=== PATIENT | male | born 1975 | race Caucasian/White ===

== ENCOUNTER → 2018-09-11 | Outpatient (CLI) | payer OTHER ==
[~2018-09-11] MED LIST: 0.9 % SODIUM CHLORIDE 10 ML DISP.SYRIN. ID ONE; GADOBUTROL 10 MMOL/10 ML VIAL INT ART ONE; IOHEXOL 300 MG/ML 50 ML VIAL. INT ART ONE; LIDOCAINE 1% Multi-Dose 20 ML VIAL. ID ONE
--- NOTE | 2018-09-11 16:37 | KCIC ---
Examination: Left Shoulder Arthrogram: Indications: Recent dislocation, shoulder pain. Procedure: Risks, benefits and complications including bleeding, infection, blood vessel damage or joint infection were discussed with the patient. Questions were answered and consent form signed. The patient was placed supine on the fluoroscopy table with the shoulder slightly externally rotated. Bony landmarks were used to plan for fluoroscopic injection. A timeout was performed. The patient was carefully prepped and draped in a sterile fashion. Using fluoroscopic guidance, local anesthetic and a 22 gauge needle the joint space was entered. Intra-articular location was confirmed as approximately 12 cc mixture of 5 cc of Omnipaque 300, 10 cc of saline, 5 cc of lidocaine and 0.1 cc of gadavist was injected to distend the shoulder joint. The procedure was well tolerated and the patient was sent to MRI. The patient was sent home in good condition with instructions to contact referring physician if there develops signs or symptoms of complications, such as pain, bleeding, fever or chills. Impression: Status post fluoroscopic guided arthrogram in preparation for MRI with contrast. Total fluoroscopic time 18 seconds. Total fluoroscopic images 1. Electronically signed by: Alek Morales MD (09/11/2018 4:34 PM) [id number]
--- NOTE | 2018-09-11 17:04 | KCIC ---
Examination: MRI left shoulder arthrogram HISTORY: History of left shoulder dislocation. COMPARISON: None available Technique: Multiplanar, multisequence MR imaging of the left shoulder performed after arthrogram injection. FINDINGS: The long head of the biceps tendon is within the bicipital groove. The attachment of the long head of biceps tendon to the superior labral anchor grossly appears intact. The attachment of the subscapularis tendon is intact. The attachment of the supraspinatus, infraspinatus tendon grossly appears intact. No evidence of full-thickness tear of the rotator cuff identified. Minimal undersurface fraying of the supraspinatus tendon. There is extensive tear of the anterior labrum extending from superior to inferior labrum. The anterior labrum appears irregular. There is contrast going through the labralchondral junction to the inferior labrum. The cartilage is thin. Questionable small Hill-Sachs defect in the posterior lateral humerus without surrounding edema. Mild degenerative changes acromioclavicular joint. Acromion is type I. The muscle bulk grossly appears unremarkable. The attachment of the inferior glenohumeral ligament is intact. IMPRESSION: 1. The anterior anterior labrum is irregular likely extensive tear of the anterior labrum with the contrast going through the labrochondral junction probably a GLAD lesion. The anterior inferior labrum is blunted. 2. Minimal fraying of the undersurface fibers of the supraspinatus tendon. Electronically signed by: Alek Morales MD (09/11/2018 5:00 PM) [id number]
== END | disposition home or self-care (01) ==
LOC: KCIC 13:11
PROVIDERS: ATTEND Orthopaedic Surgery Sports Medicine
DX: M24.412 Recurrent dislocation, left shoulder (principal); Z98.890 Other specified postprocedural states
CPT/HCPCS: 73040; 73222; A9585; Q9967